=== PATIENT | female | born 1985 | race African-American/Black ===

== ENCOUNTER 2021-07-03 12:48 | Outpatient (CLI) | payer BC, SELFPAY ==
--- NOTE | ~2021-07-03 | MM_ITS ---
EXAMINATION: MM stereotactic bx LT, MM post biopsy diagnostic LT, MM stereotactic specimen LT, Specim en Radiograph, Tissue Marker Clip Placement, Unilateral Mammogram DATE: 07/03/2021 15:04 (accession [id number]), 07/03/2021 15:07 (accession [id number]), 07/03 15:05 (accession [id number]) INDICATION: Abnormal mammogram: Upper mid left breast indeterminate microcalcifications. TECHNIQUE AND FINDINGS: The risks and potential benefits of the procedure were discussed with the patient and written informe d consent was obtained. Timeout procedure was performed. The patient was placed in the prone position on the dedicated stereotactic table with the left breast in lateral medial compression, and the area of interest was localized and targeted utilizing digital imaging with stereotaxis. After sterile preparation of the skin, 1% lidocaine was utilized for local anesthesia at the skin pun cture site and 1% lidocaine with epinephrine was utilized for deeper local anesthesia/is about the bi opsy site. A 9G [employer] vacuum assisted biopsy needle was advanced to the level of the calcification o f interest from a cephalad/caudal/medial/lateral approach utilizing stereotactic guidance and a total of 24 tissue core biopsies were obtained. A specimen radiograph demonstrates that some of the calcifications of interest are included within th e tissue cores. A tissue marker clip was then placed at the biopsy site. A digital mammographic exp osure confirmed the successful deployment of the biopsy marker. The needle was removed and hemostasi s was achieved. A sterile bandage was applied. The patient tolerated the procedure well and there i s no evidence of significant immediate complication. The patient was given verbal as well as written postprocedural instructions prior to discharge from the department. Tissue cores were submitted to surgical pathology for histologic analysis. A 2-view left unilateral digital mammogram was obtained post procedure, demonstrating the tissue kang er clip in expected position. IMPRESSION: 1. Successful stereotactic biopsy sampling of left upper mid breast microcalcifications, followed b y tissue marker clip placement. Please refer to pathology report for histologic analysis. Reviewed, dictated and finalized at [facility] Reviewed, dictated and finalized at [facility]. IMPRESSION: 1. Successful stereotactic biopsy sampling of left upper mid breast microcalc ifications, followed by tissue marker clip placement. Please refer to patholog y report for histologic analysis. IMPRESSION: 1. Successful stereotactic biopsy sampling of left upper mid breast microcalc ifications, followed by tissue marker clip placement. Please refer to patholog y report for histologic analysis.
== END 2021-07-03 12:49 | disposition home or self-care (01) ==
PROVIDERS: PCP Family Medicine
DX: R92.0 Mammographic microcalcification found on diagnostic imaging of breast (principal); N63.20 Unspecified lump in the left breast, unspecified quadrant
CPT/HCPCS: 19081; 77065; 88305; 88342; A4648